=== PATIENT | female | born 1960 | race Asian ===

== ENCOUNTER → 2016-11-20 | Outpatient (CLI) | payer BC ==
[~2016-11-20] MED LIST: ASPIRIN 81M81 MG/TA2 PO; BENADRYL25 M2 PO; COZAAR100 MG PO; CYMBALTA 30MG30 MG PO; INDERAL 20MG20 MG PO; Miralax Packet PO; NORCO 325 MG-51 TAB PO; PRILOSEC 20MG20 MG PO; SENOKOT S 50 MG1 TAB PO; XARELTO10 MG PO
== END ==
LOC: MC.RAD 13:33
DX: Z12.31 Encounter for screening mammogram for malignant neoplasm of breast (principal)

== ENCOUNTER → 2017-12-28 | Outpatient (CLI) | payer BC | LOC: MC.RAD 13:08 | DX: Z12.31 Encounter for screening mammogram for malignant neoplasm of breast (principal) ==